=== PATIENT | male | born 1985 | race Caucasian/White ===

== ENCOUNTER 2019-04-16 18:22 | Inpatient (IN) ==
[2019-04-16 19:21] LABS: Basophils % 0.4 % (0.0-0.8); Eosinophils # 0.1 10*3/uL (0.0-0.87); Eosinophils % 0.8 % (0.00-10.9); Hematocrit 38.2 VOL% (42.0-52.0); Hemoglobin 12.8 GM/DL (14.0-18.0); Immature Granulocytes % 0.3 %; Immature Granulocytes Absolute 0.03 #; Lymphocytes # 1.7 10*3/uL (1.4-4.0); Lymphocytes % 17.2 % (21.2-54.2); Mean Corpuscular HGB Conc 33.5 GM/DL (32-36); Mean Corpuscular Volume 90.3 FL (87-102); Mean Platelet Volume 9.1 FL (9.6-12.0); Monocytes % 10.8 % (1.7-12.7); Neutrophils % 70.5 % (38.7-73.9); Platelet Count 254 T/CUMM (130-400); Red Blood Count 4.23 MC/CUMM (3.8-5.5); Red Cell Distribution Width 13.5 % (9.3-17.3); White Blood Count 9.6 T/CUMM (4-12)
[2019-04-16 19:33] LABS: PT Patient Result 10.6 SECS (9.6-12.2)
[2019-04-16 19:39] LABS: Alanine Aminotransferase 14 U/L (16-61); Albumin 3.4 G/DL (3.4-5.0); Alkaline Phosphatase 55 U/L (45-117); Aspartate Amino Transferase 13 U/L (0-37); Bilirubin,Total < 0.39 MG/DL (0.2-1.0); Blood Urea Nitrogen 10 MG/DL (7-18); Calcium 8.4 MG/DL (8.5-10.1); Estimated Glom Filtration Rate 136 ML/MIN; Glucose 95 MG/DL (74-106); Osmolality,Calculated 277.4 MOS/KG (273-304); Total Protein 7.3 G/DL (6.4-8.3)
[2019-04-16] MEDS ORDERED: MAGNESIUM SULF RIDER 2 GM in PREMIX 1 EACH IV STA (19:41)
[2019-04-16] MEDS ORDERED: KETOROLAC 30 MG/1 ML VIAL IV PRN (20:05)
[2019-04-16] MEDS ORDERED: MORPHINE 4 MG/1 ML VIAL IV PRN ×2 (20:05)
[2019-04-16] MEDS ORDERED: MAGNESIUM HYDROXIDE SUSP 30 ML UDCUP PO PRN (20:05)
[2019-04-16] MEDS ORDERED: ONDANSETRON 4 MG/2 ML VIAL IV PRN (20:05)
[2019-04-16] MEDS ORDERED: LIDOCAINE 2% 5 ML VIAL ONE (20:39)
[2019-04-16] MEDS ORDERED: SEVOFLURANE 1 UNIT/15 MINUTE INH ONE (20:39)
[2019-04-16] MEDS ORDERED: propofoL 200 MG/20 ML VIAL IV ONE (20:39)
[2019-04-16] MEDS ORDERED: fentaNYL 100 MCG/2 ML VIAL ONE (20:40)
[2019-04-16] MEDS: LACTATED RINGERS 1,000 ML IV SCH (21:53)
[2019-04-16] MEDS: DIVALPROEX 500 MG TABLET PO SCH (21:59)
[2019-04-16] MEDS: carBAMazepine 200 MG TABLET PO SCH (21:59)
[2019-04-17] MEDS ORDERED: CLINDAMYCIN INJ 900 MG in PREMIX 1 EACH IV ONE (06:30)
[2019-04-17] MEDS: LACTATED RINGERS 1,000 ML IV SCH ×2 (07:05→17:13)
[2019-04-17] MEDS: lamoTRIgine 100 MG TABLET PO SCH (08:08)
[2019-04-17] MEDS: DIVALPROEX 500 MG TABLET PO SCH ×3 (08:08→20:48)
[2019-04-17] MEDS: carBAMazepine 200 MG TABLET PO SCH ×2 (08:08→20:46)
[2019-04-17] MEDS ORDERED: BACITRACIN OINT 0.9 GM PACK TOP ONE (14:53)
[2019-04-17] MEDS ORDERED: LIDOCAINE 2% 5 ML VIAL ONE (15:00)
[2019-04-17] MEDS ORDERED: fentaNYL 100 MCG/2 ML VIAL ONE (15:00)
[2019-04-17] MEDS ORDERED: diphenhydrAMINE CAP 25 MG CAPSULE PO PRN (15:00)
[2019-04-17] MEDS ORDERED: propofoL 200 MG/20 ML VIAL IV ONE (15:00)
[2019-04-17] MEDS ORDERED: SEVOFLURANE 1 UNIT/15 MINUTE INH ONE (15:00)
[2019-04-17] MEDS ORDERED: MIDAZOLAM 2 MG/2 ML VIAL ONE (15:00)
[2019-04-17] MEDS ORDERED: DEXAMETHASONE 4 MG/1 ML VIAL ONE (15:00)
[2019-04-17] MEDS ORDERED: ROCURONIUM 100 MG/10 ML VIAL IV ONE (15:01)
[2019-04-17] MEDS ORDERED: LACTATED RINGERS 1,000 ML IV ONE (15:01)
[2019-04-17] MEDS ORDERED: KETOROLAC 30 MG/1 ML VIAL ONE (15:01)
[2019-04-17] MEDS ORDERED: ONDANSETRON 4 MG/2 ML VIAL ONE ×2 (15:01→15:28)
[2019-04-17] MEDS ORDERED: NEOSTIGMINE 10 MG/10 ML VIAL ONE (15:04)
[2019-04-17] MEDS ORDERED: GLYCOPYRROLATE 0.4 MG/2 ML VIAL ONE (15:04)
[2019-04-17] MEDS ORDERED: ONDANSETRON 4 MG/2 ML VIAL IV PRN (15:25)
[2019-04-17] MEDS ORDERED: HYDROmorphone 2 MG/1 ML VIAL ONE (15:28)
[2019-04-17] MEDS: HYDROmorphone 2 MG/1 ML VIAL IV PRN ×3 (15:32→16:03)
[2019-04-17] MEDS ORDERED: hydrALAZINE 20 MG/1 ML VIAL IV PRN (17:48)
[2019-04-17] MEDS: CLINDAMYCIN INJ 900 MG in PREMIX 1 EACH IV SCH (20:46)
[2019-04-18] MEDS: CLINDAMYCIN INJ 900 MG in PREMIX 1 EACH IV SCH (04:30)
[2019-04-18] MEDS: LACTATED RINGERS 1,000 ML IV SCH (05:01)
[2019-04-18] MEDS: lamoTRIgine 100 MG TABLET PO SCH (09:18)
[2019-04-18] MEDS: DIVALPROEX 500 MG TABLET PO SCH (09:18)
[2019-04-18] MEDS: carBAMazepine 200 MG TABLET PO SCH (09:19)
[2019-04-18 11:49] VITALS: BP 144/57
== END 2019-04-18 13:12 | disposition home or self-care (01) | DRG 494 ==
LOC: EDUNIT# → EDBD → N.ED 18:22 → N.EDINP 19:40 → N.3E 20:44
PROVIDERS: ADMIT Orthopaedic Surgery; ATTEND Orthopaedic Surgery